=== PATIENT | female | born 1945 | race Caucasian/White ===

== ENCOUNTER 2024-01-31 22:36 | Observation (INO) ==
[2024-01-31] MEDS: APRESOLINE INJ 20 MG VIAL IVP ONE (23:19)
[2024-01-31] MEDS: PLAVIX PO ONE (23:30)
--- NOTE | 2024-02-01 01:16 | DR.SOBA ---
HPI Time Seen Time Seen by Provider: 02/01/24 01:09 PMH PMH Past Medical History: Asthma Past Surgical History: Yes Surgical History: Hysterectomy Social History Do you use any recreational Drugs:: No PE Vital Signs Vitals: Vital Signs Temperature 98.6 F Pulse Rate 64 Pulse Rate 74 Pulse Rate 68 Pulse Rate 73 Pulse Rate 72 Pulse Rate 72 Pulse Rate 74 Pulse Rate 71 Pulse Rate 71 Pulse Rate 73 Pulse Rate 74 Pulse Rate 75 Pulse Rate 69 Pulse Rate 71 Pulse Rate 73 Pulse Rate 78 Pulse Rate 76 Respiratory Rate 22 Respiratory Rate 22 Respiratory Rate 25 Respiratory Rate 24 Respiratory Rate 23 Respiratory Rate 24 Respiratory Rate 23 Respiratory Rate 23 Respiratory Rate 23 Respiratory Rate 15 Respiratory Rate 17 Respiratory Rate 20 Respiratory Rate 20 Respiratory Rate 20 Respiratory Rate 23 Respiratory Rate 18 Blood Pressure 151/80 Blood Pressure 133/63 Blood Pressure 147/67 Blood Pressure 149/68 Blood Pressure 149/68 Blood Pressure 149/68 Blood Pressure 160/70 Blood Pressure 171/73 Blood Pressure 180/77 Blood Pressure 184/77 Blood Pressure 208/86 O2 Sat by Pulse Oximetry 99 O2 Sat by Pulse Oximetry 99 O2 Sat by Pulse Oximetry 99 O2 Sat by Pulse Oximetry 98 O2 Sat by Pulse Oximetry 99 O2 Sat by Pulse Oximetry 99 O2 Sat by Pulse Oximetry 98 O2 Sat by Pulse Oximetry 98 O2 Sat by Pulse Oximetry 98 O2 Sat by Pulse Oximetry 99 O2 Sat by Pulse Oximetry 100 O2 Sat by Pulse Oximetry 100 O2 Sat by Pulse Oximetry 98 O2 Sat by Pulse Oximetry 98 O2 Sat by Pulse Oximetry 98 O2 Sat by Pulse Oximetry 98 O2 Sat by Pulse Oximetry 100 ROR Labs Reviewed 01/31/24 23:07 01/31/24 23:07 Laboratory: WBC 8.4 X10^3/uL (3.6-10.0) 01/31/24 23:07 RBC 4.30 X10^6/uL (3.5-5.4) 01/31/24 23:07 Hgb 13.4 g/dL (12.0-16.0) 01/31/24 23:07 Hct 39.0 % (36.0-47.0) 01/31/24 23:07 MCV 90.7 fL (80.0-100.0) 01/31/24 23:07 MCH 31.2 pg (27.0-34.0) 01/31/24 23:07 MCHC 34.4 g/dL (33.0-35.0) 01/31/24 23:07 RDW 13.4 % (11.6-16.5) 01/31/24 23:07 Plt Count 190 X10^3/uL (150.0-450.0) 01/31/24 23:07 MPV 9.6 fL (7.4-11.0) 01/31/24 23:07 Neut % (Auto) 58.8 % (42.0-75.0) 01/31/24 23:07 Lymph % (Auto) 30.8 % (21.0-51.0) 01/31/24 23:07 [place] % (Auto) 5.9 % (0.0-13.0) 01/31/24 23:07 Eos % (Auto) 4.0 % (0.9-2.9) H 01/31/24 23:07 Baso % (Auto) 0.5 % (0.2-1.0) 01/31/24 23:07 Neut # (Auto) 4.9 x10^3/uL (2.2-4.8) H 01/31/24 23:07 Lymph # (Auto) 2.6 X10^3/uL (1.3-2.9) 01/31/24 23:07 [place] # (Auto) 0.5 x10^3/uL (0.3-0.8) 01/31/24 23:07 Eos # (Auto) 0.3 x10^3/uL (0.0-0.2) H 01/31/24 23:07 Baso # (Auto) 0.0 X10^3/uL (0.0-0.1) 01/31/24 23:07 Absolute Nucleated RBC 0.1 /100WBC 01/31/24 23:07 PT 14.1 SECONDS (11.8-14.3) 01/31/24 23:07 INR Target Range - 01/31/24 23:07 INR 1.11 (0.8-1.3) 01/31/24 23:07 APTT 30.0 SECONDS (22.9-36.5) 01/31/24 23:07 PTT Comment - 01/31/24 23:07 Fibrinogen 368 mg/dL (239-489) 01/31/24 23:07 D-Dimer 0.32 ug/ml (0.0-0.57) 01/31/24 23:07 Sodium 145 mmol/L (136-145) 01/31/24 23:07 Corrected Sodium TNP 01/31/24 23:07 Potassium 3.8 mmol/L (3.5-5.1) 01/31/24 23:07 Chloride 108 mmol/L (98-107) H 01/31/24 23:07 Carbon Dioxide 28.1 mmol/L (21-32) 01/31/24 23:07 BUN 18 mg/dL (7-18) 01/31/24 23:07 Creatinine 1.15 mg/dL (0.55-1.02) H 01/31/24 23:07 Est GFR (MDRD) Af Amer 59 (>60) 01/31/24 23:07 Est GFR (MDRD) Non-Af 49 (>60) L 01/31/24 23:07 Glucose 106 mg/dL (65-99) H 01/31/24 23:07 Calcium 9.2 mg/dL (8.5-10.1) 01/31/24 23:07 Corrected Calcium TNP 01/31/24 23:07 Magnesium 2.0 mg/dL (2.0-2.9) 01/31/24 23:07 Total Bilirubin 0.30 mg/dL (0.2-1.0) 01/31/24 23:07 AST 18 Units/L (15-37) 01/31/24 23:07 ALT 23 Units/L (12-78) 01/31/24 23:07 Alkaline Phosphatase 113 Units/L (46-116) 01/31/24 23:07 Creatine Kinase 87 Units/L (26-192) 01/31/24 23:07 Troponin I High Sens 10.8 ng/L (4.0-60.0) 01/31/24 23:07 Total Protein 7.0 g/dL (6.4-8.2) 01/31/24 23:07 Albumin 3.9 g/dL (3.4-5.0) 01/31/24 23:07 Globulin 3.1 g/dL (2.5-4.5) 01/31/24 23:07 Albumin/Globulin Ratio 1.3 Ratio (1.1-2.1) 01/31/24 23:07 Specimen Type Random urine 02/01/24 01:30 Urine Color Pale yellow (YELLOW) 02/01/24 01:30 Urine Appearance Clear (CLEAR) 02/01/24 01:30 Urine pH 8.0 (5.0 - 8.0) 02/01/24 01:30 Ur Specific [place] 1.010 (1.000-1.030) 02/01/24 01:30 Urine Protein 1+ (NEGATIVE) 02/01/24 01:30 Urine Glucose (UA) Negative (NEGATIVE) 02/01/24 01:30 Urine Ketones Negative (NEGATIVE) 02/01/24 01:30 Urine Blood 1+ (NEGATIVE) 02/01/24 01:30 Urine Nitrite Negative (NEGATIVE) 02/01/24 01:30 Urine Bilirubin Negative (NEGATIVE) 02/01/24 01:30 Urine Urobilinogen Normal (NORMAL) 02/01/24 01:30 Ur Leukocyte Esterase 2+ (NEGATIVE) 02/01/24 01:30 Urine RBC None seen /HPF (0-3) 02/01/24 01:30 Urine WBC 3-5 /HPF (0-5) 02/01/24 01:30 Ur Squamous Epith Cells Few /HPF (NEGATIVE) 02/01/24 01:30 Urine Bacteria 1+ /HPF (NEGATIVE) 02/01/24 01:30 Ur Culture Indicated? No/not indicated 02/01/24 01:30 Opioid Opioid Risk Tool Age (Homar box if 16-45): No History of Preadolescent Sexual Abuse: No Total: 0 Total Score Risk Category: Low Risk Copyright: Jose WILLARD predicting aberrant behaviors Discharge Plan Discharge Plan Patient Disposition: 01 HOME, SELF-CARE Condition: Stable Orders to Discharge Patient Discharge Orders: Transfer (Routine); Ordered 02/01/24 Ordered By: PETE MARTINEZ
--- NOTE | 2024-02-01 01:35 | TELESTROKE ---
[facility] Consult Date of Consult Date of Exam: 01/31/24 Time of Arrival to the ED: 23:00 Allergies Allergies Allergy/AdvReac Type Severity Reaction Status Date / Time No Known Drug Allergies Allergy Verified 10/23/21 14:06 Vital Signs Vital Signs: Pulse Resp Pulse Ox O2 Del Method 02/01/24 01:15 74 100 Room Air 02/01/24 01:10 75 17 100 Medical Decision Making 01/31/24 23:07 Labs: [facility] Patient Name:Dona Musa Date of :1945 Identification Number: Date of Service:01/31/2024 22:49:36 Diagnosis:G45.9 - Transient cerebral ischemic attack, unspecified Impression: Suspected Transient Ischemic Attack (TIA): ABCD2 score of 4 - Admit for stroke workup including lab works (CBC, CMP, UA, TSH, LDL, A1C), MRI brain stroke protocol without contrast, and CTA/MRA head and neck to evaluate cerebrovascular status. - 2D echocardiogram to assess cardiac function. - Continue aspirin 81 mg daily for secondary stroke prevention. - Initiate statin therapy as part of secondary stroke prevention strategy. - Administer Plavix (clopidogrel) with a 300 mg loading dose, followed by 75 mg daily for 21 days, unless vessel imaging demonstrates ICAD, then extend to 90 days. - Allow for permissive hypertension up to 220/120 mmHg for the next 24 hours. - PT/OT/STAFFING BRANCH MANAGER evaluation to assess rehabilitation potential. - Consider mild sedatives for MRI if patient experiences claustrophobia. Our recommendations are outlined below. Recommendations: Stroke/Telemetry Floor Neuro Checks Bedside Swallow Eval DVT Prophylaxis IV Fluids, Normal Saline Head of Bed 30 Degrees Euglycemia and Avoid Hyperthermia (PRN Acetaminophen) Sign Out: Discussed with Emergency Department Provider Advanced Imaging: Advanced Imaging Deferred because: Non-disabling symptoms as verified by the patient; no cortical signs so not consistent with LVO Metrics: Last Known Well: 01/31/2024 20:30:00 Dispatch Time: 01/31/2024 22:49:36 Arrival Time: 01/31/2024 22:25:00 Initial Response Time: 01/31/2024 22:50:54Symptoms: transient left face numbness, slurred speech and word finding difficulty. Initial patient interaction: 01/31/2024 23:00:06 NIHSS Assessment Completed: 01/31/2024 23:10:48Patient is not a candidate for Thrombolytic. Thrombolytic Medical Decision: 01/31/2024 23:10:59Patient was not deemed candidate for Thrombolytic because of following reasons: Resolved symptoms . CT head showed no acute hemorrhage or acute core infarct. Primary Provider Notified of Diagnostic Impression and Management Plan on: 01/31/2024 23:21:13 History of Present Illness:Patient is a 78 year old Female. Patient was brought by private transportation with symptoms of transient left face numbness, slurred speech and word finding difficulty. Patient, a 78-year-old woman, presented to the ED with chief complaints of transient left facial numbness, tingling, word-finding difficulties, and aphasia. The patient reports her slurred speech lasted approximately 2030 hours and that her symptoms resolved within 15 to 20 minutes. She experienced difficulty getting words out and making sense of words. The patient has a medical history of hypertension and GERD. On arrival, the patient was hypertensive with systolic BP around 200. Past Medical History: Hypertension Medications: No Anticoagulant use Antiplatelet use:YesASA 81 Reviewed EMR for current medications Allergies: Reviewed Social History: Patient Is: Drug Use: No Family History: There is no family history of premature cerebrovascular disease pertinent to this consultation ROS : 14 Points Review of Systems was performed and was negative except mentioned in HPI. Past Surgical History: There Is No Surgical History Contributory To Todays Visit Examination: BP(208/83),Pulse(81), 1A: Level of Consciousness - Alert; keenly responsive+ 0 1B: Ask Month and Age - Both Questions Right+ 0 1C: Blink Eyes & Squeeze Hands - Performs Both Tasks+ 0 2: Test Horizontal Extraocular Movements - Normal+ 0 3: Test Visual Fang - No Visual Loss+ 0 4: Test Facial Palsy (Use Grimace if Obtunded) - Normal symmetry+ 0 5A: Test Left Arm Motor Drift - No Drift for 10 Seconds+ 0 5B: Test Right Arm Motor Drift - No Drift for 10 Seconds+ 0 6A: Test Left Leg Motor Drift - No Drift for 5 Seconds+ 0 6B: Test Right Leg Motor Drift - No Drift for 5 Seconds+ 0 7: Test Limb Ataxia (FNF/Heel-Wu) - No Ataxia+ 0 8: Test Sensation - Normal; No sensory loss+ 0 9: Test Language/Aphasia - Normal; No aphasia+ 0 10: Test Dysarthria - Normal+ 0 11: Test Extinction/Inattention - No abnormality+ 0 NIHSS Score:0 Pre-Morbid Modified Mcduffie Scale:0 Points = No symptoms at all Spoke with :Dr. Calderon This consult was conducted in real time using interactive audio and video technology. Patient was informed of the technology being used for this visit and agreed to proceed. Patient located in hospital and provider located at home/office setting. Patient is being evaluated for possible acute neurologic impairment and high probability of imminent or life-threatening deterioration. I spent total of 35 minutes providing care to this patient, including time for face to face visit via telemedicine, review of medical records, imaging studies and discussion of findings with providers, the patient and/or family. Dr Bert Tracey [facility] For Inpatient follow-up with [facility] physician please call [facility] at . As we are not an outpatient service for any post hospital discharge needs please contact the hospital for assistance. If you have any questions for the [facility] physicians or need to reconsult for clinical or diagnostic changes please contact us via [facility] at .
[2024-02-01 01:49] LABS: BASOPHILS % (AUTO) 0.5 % (0.2-1.0); EOSINOPHILS # (AUTO) 0.3 x10^3/uL (0.0-0.2); HEMOGLOBIN 13.4 g/dL (12.0-16.0); LYMPHOCYTES # (AUTO) 2.6 X10^3/uL (1.3-2.9); LYMPHOCYTES % (AUTO) 30.8 % (21.0-51.0); MEAN CORPUSCULAR HEMOGLOBIN 31.2 pg (27.0-34.0); MEAN CORPUSCULAR HGB CONC 34.4 g/dL (33.0-35.0); MEAN CORPUSCULAR VOLUME 90.7 fL (80.0-100.0); MEAN PLATELET VOLUME 9.6 fL (7.4-11.0); MONOCYTES # (AUTO) 0.5 x10^3/uL (0.3-0.8); MONOCYTES % (AUTO) 5.9 % (0.0-13.0); NEUTROPHILS # (AUTO) 4.9 x10^3/uL (2.2-4.8); NEUTROPHILS % (AUTO) 58.8 % (42.0-75.0); PLATELET COUNT 190 X10^3/uL (150.0-450.0); RED CELL DISTRIBUTION WIDTH 13.4 % (11.6-16.5); WHITE BLOOD COUNT 8.4 X10^3/uL (3.6-10.0)
[2024-02-01 01:52] LABS: ALANINE AMINOTRANSFERASE 23 Units/L (12-78); ALBUMIN 3.9 g/dL (3.4-5.0); ALKALINE PHOSPHATASE 113 Units/L (46-116); ASPARTATE AMINO TRANSFERASE 18 Units/L (15-37); BLOOD UREA NITROGEN 18 mg/dL (7-18); CALCIUM 9.2 mg/dL (8.5-10.1); CARBON DIOXIDE 28.1 mmol/L (21-32); CHLORIDE 108 mmol/L (98-107); CREATINE KINASE 87 Units/L (26-192); CREATININE 1.15 mg/dL (0.55-1.02); GLUCOSE 106 mg/dL (65-99); POTASSIUM 3.8 mmol/L (3.5-5.1); SODIUM 145 mmol/L (136-145); eGFR NON BLACK RACES 49 (>60)
[2024-02-01 01:54] LABS: INR 1.11 (0.8-1.3)
[2024-02-01] MEDS: NS 1,000 ML IV 1,000 ML IV ONE (02:04)
[2024-02-01 02:08] LABS: BILIRUBIN,URINE NEGATIVE (NEGATIVE); BLOOD/HEMOGLOBIN,URINE 1+ (NEGATIVE); GLUCOSE, URINE NEGATIVE (NEGATIVE); KETONES,URINE NEGATIVE (NEGATIVE); LEUKOCYTE ESTERASE ,URINE 2+ (NEGATIVE); NITRITES,URINE NEGATIVE (NEGATIVE); PROTEIN,URINE 1+ (NEGATIVE); UROBILINOGEN,URINE NORMAL (NORMAL)
[2024-02-01 02:20] LABS: APPEARANCE,URINE CLEAR (CLEAR); BACTERIA,URINE 1+ /HPF (NEGATIVE); COLOR,URINE PALE YELLOW (YELLOW); RBC,URINE NONE SEEN /HPF (0-3); SQUAMOUS EPITHELIAL CELL,UR FEW /HPF (NEGATIVE)
[2024-02-01 04:47] VITALS: BMI 23.6
[2024-02-01 06:18] LABS: BASOPHILS % (AUTO) 0.7 % (0.2-1.0); EOSINOPHILS # (AUTO) 0.3 x10^3/uL (0.0-0.2); EOSINOPHILS % (AUTO) 4.2 % (0.9-2.9); HEMATOCRIT 37.1 % (36.0-47.0); HEMOGLOBIN 12.8 g/dL (12.0-16.0); HEMOGLOBIN A1C 5.9 %; LYMPHOCYTES # (AUTO) 2.2 X10^3/uL (1.3-2.9); LYMPHOCYTES % (AUTO) 29.6 % (21.0-51.0); MEAN CORPUSCULAR HEMOGLOBIN 31.2 pg (27.0-34.0); MEAN CORPUSCULAR HGB CONC 34.4 g/dL (33.0-35.0); MEAN CORPUSCULAR VOLUME 90.6 fL (80.0-100.0); MEAN PLATELET VOLUME 9.9 fL (7.4-11.0); MONOCYTES # (AUTO) 0.4 x10^3/uL (0.3-0.8); MONOCYTES % (AUTO) 5.5 % (0.0-13.0); NEUTROPHILS # (AUTO) 4.4 x10^3/uL (2.2-4.8); PLATELET COUNT 171 X10^3/uL (150.0-450.0); RED BLOOD COUNT 4.09 X10^6/uL (3.5-5.4); RED CELL DISTRIBUTION WIDTH 13.2 % (11.6-16.5); WHITE BLOOD COUNT 7.4 X10^3/uL (3.6-10.0)
[2024-02-01 06:39] LABS: ALANINE AMINOTRANSFERASE 21 Units/L (12-78); ALBUMIN 3.4 g/dL (3.4-5.0); ALKALINE PHOSPHATASE 95 Units/L (46-116); ASPARTATE AMINO TRANSFERASE 17 Units/L (15-37); BLOOD UREA NITROGEN 19 mg/dL (7-18); CARBON DIOXIDE 27.4 mmol/L (21-32); CHLORIDE 108 mmol/L (98-107); CHOL/HDL RATIO 2.6 (0.0-5.0); CREATININE 1.05 mg/dL (0.55-1.02); GLUCOSE 97 mg/dL (65-99); POTASSIUM 3.9 mmol/L (3.5-5.1); SODIUM 143 mmol/L (136-145); TOTAL PROTEIN 6.1 g/dL (6.4-8.2); TSH (3RD GENERATION) 1.156 uIU/mL (0.358-3.74); eGFR NON BLACK RACES 54 (>60)
[2024-02-01] MEDS: NS 1,000 ML IV 1,000 ML ONE (07:09)
[2024-02-01] MEDS: ASPIRIN EC 81 MG PO SCH (08:49)
[2024-02-01] MEDS: PLAVIX PO SCH (08:50)
[2024-02-01] MEDS ORDERED: VALIUM INJ ONE (11:33)
[2024-02-01] MEDS: VALIUM INJ IVP ONE (11:40)
--- NOTE | 2024-02-01 12:27 | MRI ---
EXAM:BRAIN W/O CONHISTORY:STROKE SYMPTOMS ;COMPARISON:CT brain 01/31/2024TECHNIQUE:Multiplanar multisequence MRI of the brain was obtained without contrast using standard departmental protocol.FINDINGS:Diffusion sequences show no abnormal signal. No evidence for acute ischemia.Minimal age-related findings include central and cortical atrophy with abnormal signal in the periventricular white matter, most likely the micro-ischemic changes of aging.Otherwise tariq and white matter have normal differentiation. There is no mass, shift, or hemorrhage. Cerebellar tonsils are at an appropriate level.There is normal signal flow void in the central vessels. No abnormal signal on susceptibility sequences.No fluid in the sinuses or mucosal thickening to suggest sinusitis. There is no mastoid effusion.IMPRESSION:1. No acute findingsTHIS IS AN ELECTRONICALLY VERIFIED FINAL [id number]/01/2024 12:24 PM - Electronically signed by Juan Brown MD
[2024-02-01 12:50] VITALS: BP 170/80; PULSE 71; RESP 22; TEMP 98.3; O2SAT 99
--- NOTE | 2024-02-01 16:38 | DR.SSS ---
SHORT STAY SUMMARY Admission Date Date of Admission: 01/31/24 Discharge Date Discharge Date: 02/01/24 Admission Diagnoses Admission Diagnoses: Hypertensive emergency, TIA Discharge Diagnoses Discharge Diagnoses: Same Chief Complaint Chief Complaint: not able to smile, high BP History of Present Illness History of Present Illness: On-call provider notified by that patient was not acting right, not following commands, unable to express herself, and had elevated blood pressure. He was instructed to get her to the closest ER. Once at the ER her symptoms improved rapidly over an hour. ER workup benign other than hypertension. Teleneuro consulted and recommended admission for MRI and echo. Patient and family agreeable. Overnight she did well. Blood pressure labile but overall elevated. Symptoms fully resolved with no return of symptoms. Patient and spouse deny any prior episodes of similar. 12 point ROS negative except as noted in HPI. Did not have any facial asymmetry, extremity weakness, head trauma, or falls. PE: Well-developed, well-nourished female in no acute distress. Hearing intact conversation. Head NCAT. EOMI. CN II through XII grossly normal. Heart regular in rhythm. Lungs are clear. Belly is soft, nontender, nondistended with bowel sounds present. Mood and affect are appropriate. Moves all extremities equally well with full range of motion and 5/5 strength throughout Past Medical History Past Medical History: Asthma Past Surgical History Surgical History: Hysterectomy Allergies Allergies Allergy/AdvReac Type Severity Reaction Status Date / Time silicone Allergy Verified 02/01/24 03:58 Medications Home Medications: silicone Allergy (Verified 02/01/24 03:58) CONTINUE taking the following medications aspirin 81 mg tablet,delayed release 81 mg PO DAILY 02/01/24 [History] lisinopril 40 mg tablet 40 mg PO QDAY 02/01/24 [History] Family History Family Medical History: Coronary Artery Disease, Heart Failure and Hypertension Social History Does patient currently use any type of tobacco product: No Have you used tobacco products in the last 12 months: No Type of Tobacco Use: None Does any household member use tobacco: No Alcohol Use: None Drug Use: None Physical Exam Vital Signs: Last Vital Signs Temp 98.3 F 02/01/24 12:00 Pulse 71 02/01/24 12:00 Resp 22 02/01/24 12:00 BP 170/80 02/01/24 12:00 Pulse Ox 99 02/01/24 12:00 O2 Del Method Room Air 02/01/24 12:00 O2 Flow Rate 2 02/01/24 04:40 FiO2 28 02/01/24 04:40 Labs Labs: Laboratory Last Values WBC 7.4 X10^3/uL (3.6-10.0) 02/01/24 05:27 RBC 4.09 X10^6/uL (3.5-5.4) 02/01/24 05:27 Hgb 12.8 g/dL (12.0-16.0) 02/01/24 05:27 Hct 37.1 % (36.0-47.0) 02/01/24 05:27 MCV 90.6 fL (80.0-100.0) 02/01/24 05:27 MCH 31.2 pg (27.0-34.0) 02/01/24 05:27 MCHC 34.4 g/dL (33.0-35.0) 02/01/24 05:27 RDW 13.2 % (11.6-16.5) 02/01/24 05:27 Plt Count 171 X10^3/uL (150.0-450.0) 02/01/24 05:27 MPV 9.9 fL (7.4-11.0) 02/01/24 05:27 Neut % (Auto) 60.0 % (42.0-75.0) 02/01/24 05:27 Lymph % (Auto) 29.6 % (21.0-51.0) 02/01/24 05:27 [place] % (Auto) 5.5 % (0.0-13.0) 02/01/24 05:27 Eos % (Auto) 4.2 % (0.9-2.9) H 02/01/24 05:27 Baso % (Auto) 0.7 % (0.2-1.0) 02/01/24 05:27 Neut # (Auto) 4.4 x10^3/uL (2.2-4.8) 02/01/24 05:27 Lymph # (Auto) 2.2 X10^3/uL (1.3-2.9) 02/01/24 05:27 [place] # (Auto) 0.4 x10^3/uL (0.3-0.8) 02/01/24 05:27 Eos # (Auto) 0.3 x10^3/uL (0.0-0.2) H 02/01/24 05:27 Baso # (Auto) 0.0 X10^3/uL (0.0-0.1) 02/01/24 05:27 Absolute Nucleated RBC 0.0 /100WBC 02/01/24 05:27 PT 14.1 SECONDS (11.8-14.3) 01/31/24 23:07 INR Target Range - 01/31/24 23:07 INR 1.11 (0.8-1.3) 01/31/24 23:07 APTT 30.0 SECONDS (22.9-36.5) 01/31/24 23:07 PTT Comment - 01/31/24 23:07 Fibrinogen 368 mg/dL (239-489) 01/31/24 23:07 D-Dimer 0.32 ug/ml (0.0-0.57) 01/31/24 23:07 Sodium 143 mmol/L (136-145) 02/01/24 05:27 Corrected Sodium TNP 02/01/24 05:27 Potassium 3.9 mmol/L (3.5-5.1) 02/01/24 05:27 Chloride 108 mmol/L (98-107) H 02/01/24 05:27 Carbon Dioxide 27.4 mmol/L (21-32) 02/01/24 05:27 BUN 19 mg/dL (7-18) H 02/01/24 05:27 Creatinine 1.05 mg/dL (0.55-1.02) H 02/01/24 05:27 Est GFR (MDRD) Af Amer > 60 (>60) 02/01/24 05:27 Est GFR (MDRD) Non-Af 54 (>60) L 02/01/24 05:27 Glucose 97 mg/dL (65-99) 02/01/24 05:27 Hemoglobin A1c 5.9 % 02/01/24 05:27 Calcium 9.0 mg/dL (8.5-10.1) 02/01/24 05:27 Corrected Calcium TNP 02/01/24 05:27 Magnesium 2.0 mg/dL (2.0-2.9) 01/31/24 23:07 Total Bilirubin 0.30 mg/dL (0.2-1.0) 02/01/24 05:27 AST 17 Units/L (15-37) 02/01/24 05:27 ALT 21 Units/L (12-78) 02/01/24 05:27 Alkaline Phosphatase 95 Units/L (46-116) 02/01/24 05:27 Creatine Kinase 87 Units/L (26-192) 01/31/24 23:07 Troponin I High Sens 10.8 ng/L (4.0-60.0) 01/31/24 23:07 Total Protein 6.1 g/dL (6.4-8.2) L 02/01/24 05:27 Albumin 3.4 g/dL (3.4-5.0) 02/01/24 05:27 Globulin 2.7 g/dL (2.5-4.5) 02/01/24 05:27 Albumin/Globulin Ratio 1.3 Ratio (1.1-2.1) 02/01/24 05:27 Triglycerides 68 mg/dL (0-150) 02/01/24 05:27 Cholesterol 148 mg/dL (0-200) 02/01/24 05:27 LDL Cholesterol, Calc 78 mg/dL (0-100) 02/01/24 05:27 HDL Cholesterol 56 mg/dL (40-60) 02/01/24 05:27 Cholesterol/HDL Ratio 2.6 (0.0-5.0) 02/01/24 05:27 TSH 3rd Generation 1.156 uIU/mL (0.358-3.74) 02/01/24 05:27 Specimen Type Random urine 02/01/24 01:30 Urine Color Pale yellow (YELLOW) 02/01/24 01:30 Urine Appearance Clear (CLEAR) 02/01/24 01:30 Urine pH 8.0 (5.0 - 8.0) 02/01/24 01:30 Ur Specific [place] 1.010 (1.000-1.030) 02/01/24 01:30 Urine Protein 1+ (NEGATIVE) 02/01/24 01:30 Urine Glucose (UA) Negative (NEGATIVE) 02/01/24 01:30 Urine Ketones Negative (NEGATIVE) 02/01/24 01:30 Urine Blood 1+ (NEGATIVE) 02/01/24 01:30 Urine Nitrite Negative (NEGATIVE) 02/01/24 01:30 Urine Bilirubin Negative (NEGATIVE) 02/01/24 01:30 Urine Urobilinogen Normal (NORMAL) 02/01/24 01:30 Ur Leukocyte Esterase 2+ (NEGATIVE) 02/01/24 01:30 Urine RBC None seen /HPF (0-3) 02/01/24 01:30 Urine WBC 3-5 /HPF (0-5) 02/01/24 01:30 Ur Squamous Epith Cells Few /HPF (NEGATIVE) 02/01/24 01:30 Urine Bacteria 1+ /HPF (NEGATIVE) 02/01/24 01:30 Ur Culture Indicated? No/not indicated 02/01/24 01:30 Hospital Course Hospital Course: Patient admitted for TIA/CVA workup. CTA, MRI head, carotid ultrasound, and labs benign. Blood pressure variable with overall elevated numbers. Echo pending at time of discharge. Symptoms had fully resolved within an hour of initiation last night. It was decided she was safe for discharge home on Plavix for 3 weeks, Crestor, addition of amlodipine at night, and as needed clonidine. She is to follow with her PCP next week. PCP and IR to follow-up on the echo report later this week. Return to ER instructions given to patient and spouse who voiced understanding. Patient sent home in stable, improved condition with spouse. Discharge Medications Discharge Medications: Home Medication List aspirin 81 mg tablet,delayed release 81 mg PO DAILY 02/01/24 [History] lisinopril 40 mg tablet 40 mg PO QDAY 02/01/24 [History] Prescriptions: Discharge Plan Discharge Plan Patient Disposition: HOME, SELF-CARE Condition: Stable Health Concerns: Post Hospitalization: new medications and changes needed to prevent readmission or further decline. Pt educated and given instructions on all concerns. Care Plan Goals: Problem: Pain/Alteration in Comfort Goal: Improve/ Resolve Pain; Achieve Pain Tolerance Instructions: Take pain medications as prescribed. Contact your primary care provider if your pain is unrelieved or worsens. Follow up with primary care provider as directed. Plan of Treatment: Continue with present treatment and follow up plan. Pt is to keep follow up appointment as instructed and take medications as ordered. Prescription drug monitoring program results: PDMP was not reviewed Prescriptions: New clopidogrel 75 mg Tablet 75 mg PO DAILY 21 Days Qty: 21 0RF rosuvastatin 10 mg Tablet 20 mg PO HS 30 Days Qty: 60 0RF clonidine HCl 0.1 mg tablet 0.1 mg PO BID PRN (Reason: hypertensive emergency) Qty: 60 0RF Rx Instructions: SBP>160, DBP>100 amlodipine 5 mg tablet 5 mg PO QHS Qty: 30 0RF Continued aspirin 81 mg Tablet,Delayed Release (Dr/Ec) 81 mg PO DAILY lisinopril 40 mg tablet 40 mg PO QDAY Orders to Discharge Patient Discharge Orders: Discharge (Routine); Ordered 02/01/24 Ordered By: Bryan Chavez Follow ups/Referrals Follow ups/Referrals: CHRISTOPH KOHLI [STAFF PHYSICIAN] - 02/02/24 10:00 am Instructions Instructions: Stroke Prevention, Warning Signs of a Stroke, Fall Prevention in the Home Stand Alone Forms: Excuse From Work or School, Find Help Web Site, Post Hospital Follow Up Care
--- NOTE | 2024-02-01 19:10 | EKG ---
Test Reason : CP Blood Pressure : */* mmHG Vent. Rate : 74 BPM Atrial Rate : 74 BPM P-R Int : 130 ms QRS Dur : 74 ms QT Int : 386 ms P-R-T Axes : 61 31 42 degrees QTc Int : 428 ms Normal sinus rhythm with sinus arrhythmia Normal ECG Confirmed by Melvin Weaver ([id number]) on 02/06/2024 8:06:25 AM Referred By: Confirmed By: Melvin Weaver
[2024-02-01] MEDS ORDERED: CRESTOR TAB 10 MG PO SCH (21:00)
== END 2024-02-01 15:05 | disposition home or self-care (01) ==
LOC: MED/SURG 22:36 → OBS 22:36 → MED/SURG 02-01 04:05
PROVIDERS: ADMIT Family Medicine; ATTEND Family Medicine
DX: I16.0 Hypertensive urgency; Z79.82 Long term (current) use of aspirin; R07.89 Other chest pain; I10 Essential (primary) hypertension; G45.8 Other transient cerebral ischemic attacks and related syndromes; K21.9 Gastro-esophageal reflux disease without esophagitis